=== PATIENT | male | born 1945 | race Caucasian/White ===

== ENCOUNTER 2019-05-24 07:50 | Day surgery (SDC) | payer MEDICARE, BC, OTHER ==
[~2019-05-24] VITALS: Ht 162.6 cm; Wt 64.7 kg
[~2019-05-24 07:50] MED LIST: ASPI325; Aspirin EC81 MG PO; COL-RITE50 MG PO; CYCL10 PO; DOC250; HYDACE10B PO; HYDCHL25; Hydrocodone-Ap1 EA23 PO; LAMO100 PO; METH10; METH10 PO; MORP30 PO; Percocet 5-3251 EACH PO; Prinivil5 MG PO; SENN187 PO; SUBVENITE200 MG PO; Senna-Docusate1 EACH PO; TAMS.4ER PO; TERA5 PO; XARELTO10 MG PO; [UNRECOGNIZED DRUG - OTHER]
== END 2019-05-24 11:41 | disposition home or self-care (01) ==
LOC: ORSCSDS 07:50
PROVIDERS: Internal Medicine Gastroenterology
PROC: 0DBN8ZX Excision of Sigmoid Colon, Via Natural or Artificial Opening Endoscopic, Diagnostic (ICD-10-PCS; principal; 2019-05-24 09:00)
PROC: 0DBL8ZX Excision of Transverse Colon, Via Natural or Artificial Opening Endoscopic, Diagnostic (ICD-10-PCS; principal; 2019-05-24 09:00)
PROC: 0DBH8ZX Excision of Cecum, Via Natural or Artificial Opening Endoscopic, Diagnostic (ICD-10-PCS; principal; 2019-05-24 09:00)
PROC: 0D758ZZ Dilation of Esophagus, Via Natural or Artificial Opening Endoscopic (ICD-10-PCS; principal; 2019-05-24 09:00)
PROC: 0DBK8ZX Excision of Ascending Colon, Via Natural or Artificial Opening Endoscopic, Diagnostic (ICD-10-PCS; principal; 2019-05-24 09:00)
PROC: 0DB58ZX Excision of Esophagus, Via Natural or Artificial Opening Endoscopic, Diagnostic (ICD-10-PCS; principal; 2019-05-24 09:00)
DX: R13.10 Dysphagia, unspecified (principal); Z12.11 Encounter for screening for malignant neoplasm of colon; D12.3 Benign neoplasm of transverse colon; D12.0 Benign neoplasm of cecum; D12.2 Benign neoplasm of ascending colon; D12.5 Benign neoplasm of sigmoid colon; K22.10 Ulcer of esophagus without bleeding; K63.89 Other specified diseases of intestine; K57.30 Diverticulosis of large intestine without perforation or abscess without bleeding; K64.8 Other hemorrhoids; G40.909 Epilepsy, unspecified, not intractable, without status epilepticus; Z79.899 Other long term (current) drug therapy; Z79.82 Long term (current) use of aspirin
CPT/HCPCS: 88305; J2405; J2704; J7120

== ENCOUNTER 2019-08-28 06:52 | Day surgery (SDC) | payer MEDICARE, BC, OTHER ==
[~2019-08-28] VITALS: Ht 167.6 cm; Wt 68.0 kg
[~2019-08-28 06:52] MED LIST changes: +OMEPRAZOLE20 MG PO
== END 2019-08-28 09:30 | disposition home or self-care (01) ==
LOC: ORSCSDS 06:52
PROVIDERS: Internal Medicine Gastroenterology
PROC: 0DB58ZX Excision of Esophagus, Via Natural or Artificial Opening Endoscopic, Diagnostic (ICD-10-PCS; principal; 2019-08-28 08:45)
DX: Z87.11 Personal history of peptic ulcer disease (principal); K20.8 Other esophagitis; R56.9 Unspecified convulsions; Z79.82 Long term (current) use of aspirin; Z79.899 Other long term (current) drug therapy
CPT/HCPCS: 88305; J2704; J7120

== ENCOUNTER 2023-01-11 19:58 | Emergency (ER) | payer MEDICARE, BC, OTHER ==
[~2023-01-11] VITALS: Ht 162.6 cm; Wt 59.0 kg
[~2023-01-11 19:58] MED LIST changes: +CEFP200 PO
[2023-01-11 20:39] VITALS: BP 110/64
[2023-01-11 21:45] LABS: Source, Urine Foley catheter
[2023-01-11 21:49] LABS: Appearance, Urine Cloudy (Clear); Bilirubin, Urine Neg (Neg); Blood, Urine 5+ (Neg); Color, Urine Amber (P-Yellow); Glucose Qualitative, Urine Neg (Neg); Ketones, Urine 1+ (Neg); Leukocyte Esterase, Urine 3+ (Neg); Nitrite, Urine Pos (Neg); Protein, Urine 3+ (Neg); Specific Gravity, Urine 1.015 (1.003-1.022); Urobilinogen, Urine NORM (Normal); pH, Urine 6.5 (5.0-8.0)
[2023-01-11 21:56] LABS: Bacteria Many /hpf; Red Blood Cells, Urine TNTC /hpf (0-2); Squamous Epithelial Cells Rare /hpf (Few); White Blood Cells, Urine 50-100 /hpf (0-5)
[2023-01-11 21:57] LABS: Renal Epithelial Rare /hpf (0-Rare)
[2023-01-11] MEDS ORDERED: Macrobid 100 M100 MG PO (22:02)
== END 2023-01-11 22:02 | disposition home or self-care (01) ==
LOC: ER 19:58
PROVIDERS: Physician Assistant
DX: T83.098A Other mechanical complication of other urinary catheter, initial encounter (principal); N39.0 Urinary tract infection, site not specified; Y73.8 Miscellaneous gastroenterology and urology devices associated with adverse incidents, not elsewhere classified; Z88.0 Allergy status to penicillin; Z88.8 Allergy status to other drugs, medicaments and biological substances; Z79.899 Other long term (current) drug therapy; Z79.82 Long term (current) use of aspirin
CPT/HCPCS: 51702; 81001

== ENCOUNTER 2024-09-01 02:57 | Emergency (ER) | payer MEDICARE, BC, OTHER ==
[~2024-09-01] VITALS: Ht 165.1 cm; Wt 61.2 kg
[~2024-09-01 02:57] MED LIST changes: +Macrobid 100 M100 MG PO
[2024-09-01 03:03] VITALS: BP 131/79
[2024-09-01 03:33] LABS: Source, Urine Foley catheter
[2024-09-01 03:42] LABS: Bilirubin, Urine Neg (Neg); Blood, Urine 1+ (Neg); Glucose Qualitative, Urine Neg (Neg); Ketones, Urine Neg (Neg); Leukocyte Esterase, Urine 1+ (Neg); Nitrite, Urine Neg (Neg); Protein, Urine 1+ (Neg); Specific Gravity, Urine 1.015 (1.003-1.022); Urobilinogen, Urine NORM (Normal)
[2024-09-01 03:48] LABS: Appearance, Urine Clear (Clear); Color, Urine Yellow (P-Yellow)
[2024-09-01 03:49] LABS: Bacteria Mod /hpf; Red Blood Cells, Urine 0-2 /hpf (0-2); Squamous Epithelial Cells Few /hpf (Few); White Blood Cells, Urine 0-2 /hpf (0-5)
== END 2024-09-01 03:34 | disposition home or self-care (01) ==
LOC: ER 02:57
PROVIDERS: Emergency Medicine
DX: T83.091A Other mechanical complication of indwelling urethral catheter, initial encounter (principal); F43.10 Post-traumatic stress disorder, unspecified; K21.9 Gastro-esophageal reflux disease without esophagitis; E11.9 Type 2 diabetes mellitus without complications; E78.5 Hyperlipidemia, unspecified; I10 Essential (primary) hypertension; Z79.899 Other long term (current) drug therapy; Z88.0 Allergy status to penicillin; Z88.8 Allergy status to other drugs, medicaments and biological substances
CPT/HCPCS: 51702; 81001; 87086; 99283-25